=== PATIENT | female | born 1965 | race Caucasian/White ===

== ENCOUNTER 2019-06-01 16:15 | Outpatient (REF) | payer BC, SELFPAY ==
--- NOTE | 2019-06-01 15:45 | PAPFT_PTH ---
PATIENT: Mckayla Centeno LOC: [facility] U#:[id number] AGE/SX: 54/F ROOM: RE06/01/[address]: HU Arevalo : 1965 BED: DIS: 06/01/2019 SPEC #: [id number] RECD: 06/01/19 17:30 STATUS: ANJUM RERanjeet #: [id number] JAIME: 06/01/19 15:[address]: Sirena Briscoe DEPT: [facility] Cytology RECD BY: Carolynn Leon ENTERED: 06/01/19 17:31 SP TYPE: PAPFT OTHR DR: Kerry Espinosa, Tissues: 1 - CX/ENDOCX FOR PAP SMEARS Procedures: PAP THIN PREP/[facility] Screening HPV DNA PROBE Comments: [id number]
== END 2019-06-01 16:35 ==
LOC: LBN 16:15
PROVIDERS: PCP Student in an Organized Health Care Education/Training Program; Visit Provider Nurse Practitioner Family
DX: Z12.4 Encounter for screening for malignant neoplasm of cervix (principal); Z11.51 Encounter for screening for human papillomavirus (HPV)
CPT/HCPCS: 88142; 87624

== ENCOUNTER 2019-10-22 02:54 | Outpatient (CLI) | payer BC, SELFPAY ==
[2019-10-22 14:14] LABS: Hemoglobin A1C 7.1 % (3.8-5.6)
[2019-10-22 14:19] LABS: CREATININE 0.68 mg/dL (0.55-1.02); FREE T4 1.39 ng/dL (0.76-1.46)
[2019-10-22 14:32] LABS: LDL CHOLESTEROL 100 mg/dL (<100)
== END 2019-10-22 03:14 ==
PROVIDERS: PCP Student in an Organized Health Care Education/Training Program; Visit Provider Internal Medicine Endocrinology, Diabetes & Metabolism
DX: E10.319 Type 1 diabetes mellitus with unspecified diabetic retinopathy without macular edema (principal); E03.8 Other specified hypothyroidism
CPT/HCPCS: 36415; 83721; 82565; 83036; 84439

== ENCOUNTER 2019-11-12 01:25 | Outpatient (CLI) | payer BC, SELFPAY ==
--- NOTE | 2019-11-12 14:45 | DI.MAMMO_ITS ---
EXAM: MG MAMMO SCREENING CLINICAL HISTORY: screening Z12.39 TECHNIQUE: Bilateral full field digital CC and MLO mammographic images were obtained with 3D tomosyn thesis and utilizing computer aided detection (CAD). COMPARISON: Available for comparison. FINDINGS: Masses/Architectural Distortion: None seen. Microcalcifications: No suspicious pleomorphic-type are seen. Skin Thickening/Nipple Retraction: None. IMPRESSION: 1. No significant interval change with no specific features of malignancy noted. 2. Unless there is more urgent need, screening mammography is recommended, as per [employer] guidelines. BI-RADS Category 1 - Negative Breast Density - Category B - Scattered areas of fibroglandular density A negative radiographic report should not delay biopsy if a dominant or clinically suspicious mass is present. Up to ten percent of cancers are not identified on mammography. A negative report may reinforce clinical impression. Adenosis and dense breasts may obscure an underlying neoplasm. False positive reports average 6 to 10%. Patient will receive a letter notifying them of these results.
== END 2019-11-12 01:45 ==
PROVIDERS: PCP Student in an Organized Health Care Education/Training Program; Visit Provider Nurse Practitioner Family
DX: Z12.31 Encounter for screening mammogram for malignant neoplasm of breast (principal)
CPT/HCPCS: 77063; 77067

== ENCOUNTER 2019-12-30 10:14 | Outpatient (CLI) | payer BC, SELFPAY ==
[2019-12-30 10:36] LABS: Abs Immature Grans 0.14 10^3/uL (0.0-0.06); Absolute Basophil Count 0.04 10^3/uL (0.0-0.2); Absolute Eosinophil Count 0.03 10^3/uL (0.0-0.7); Absolute Lymphocyte Count 1.27 10^3/uL (1.2-3.4); Absolute Monocyte Count 0.91 10^3/uL (0.1-0.8); Basophils % 0.4; Eosinophils % 0.3; HCT 41.8 % (36.0-46.0); HGB 13.7 g/dL (11.2-15.7); Immature Grans % 1.3; Lymphocytes % 11.5; MCH 28.2 pg (27.0-33.0); MCHC 32.8 % (32.0-36.0); MPV 11.9 fL (8.0-11.0); Monocytes % 8.3; Neutrophils % 78.2; Nucleated RBC 0 %; RBC 4.86 10^6/uL (3.93-5.22); RDW 12.4 % (11.7-14.6); RDW-SD 39.2 fL
[2019-12-30 10:47] LABS: ALT 42 U/L (14-59); AST 29 U/L (15-37); Albumin 3.2 g/dL (3.4-5.0); Alkaline Phosphatase 77 U/L (46-116); Anion Gap 7.8 mmol/L (3-11); BUN 11 mg/dL (7-18); Bilirubin, Total 0.6 mg/dL (0.2-1.0); CO2 30.2 mmol/L (21.0-32.0); CREATININE 0.81 mg/dL (0.55-1.02); Calcium 8.9 mg/dL (8.5-10.1); Chloride 100 mmol/L (98-107); Glucose 172 mg/dL (74-106); Lipase 92 U/L (73-393); Sodium 138 mmol/L (136-145); Total Protein 6.6 g/dL (6.4-8.2)
[2019-12-30 10:50] LABS: Potassium 2.7 mmol/L (3.5-5.1)
[2019-12-30 10:54] LABS: Diff Comment PLT Morph Reviewed; RBC Morphology Normal
== END 2019-12-30 10:34 ==
PROVIDERS: PCP Student in an Organized Health Care Education/Training Program; Visit Provider Internal Medicine
DX: E16.2 Hypoglycemia, unspecified (principal)
CPT/HCPCS: 36415; 80053; 83690; 85025

== ENCOUNTER 2019-12-31 13:30 | Outpatient (CLI) | payer BC, SELFPAY ==
[2019-12-31] MEDS: Omnipaque 350 MG/ML 50 ML BTL IJ (12:17)
[2019-12-31] MEDS: Breeza Beverage 473 ML BTL PO (12:18)
[2019-12-31] MEDS: Normal Saline - Diluent 50 ML VIAL IV (13:14)
[2019-12-31] MEDS: Omnipaque 350 MG/ML 100 ML BTL IJ (13:14)
[2019-12-31] MEDS: Normal Saline Flush 10 ML SYR IVP (13:15)
--- NOTE | 2019-12-31 13:16 | DI.CT_ITS ---
EXAM: CT ABDOMEN PELVIS W CLINICAL HISTORY: hypoglycemia, leukocytosis, d72.829 elevated white blood cell count TECHNIQUE: Imaging Protocol: Axial computed tomography images with coronal and sagittal reformatted images were created and reviewed CONTRAST MATERIAL: Intravenous: Omnipaque 350 Contrast volume:100 mL Oral: Yes COMPARISON: CT ABD PELVIS WITH CONTRAST from 07/19/2015 FINDINGS: ABDOMEN: Lung Bases: Normal where visualized. Liver: There are 2 hypodense lesions seen in the liver that too small for further characterization bu t likely reflect small cysts. No measurable mass. Portal, Superior Mesenteric, and Splenic Veins: Unremarkable. Gallbladder and Biliary Tract: No radiodense calculus or dilation. Pancreas: Normal density, no abnormal calcifications or inflammatory process. Spleen: Normal. Adrenals: No masses seen. Kidneys: Normal size, contour and axis. No radiodense stones or obstructive uropathy. No masses seen. Abdominal Aorta: Abdominal portion non-dilated. Bowel: No obstruction. Mild bowel wall thickening in loops of small bowel in the left abdomen which may reflect an inflammatory or infectious enteritis. Appendix is unremarkable. There is a large amou nt of stool in the colon. Peritoneal Cavity: No ascites, collection or mesenteric inflammatory response. Lymph Nodes: Within normal limits. Bones: Degenerative changes most marked at L4-L5. Old compression deformity of T11. Soft Tissues: Unremarkable. PELVIS: Bladder: Symmetric distention, no gross wall thickening. Reproductive Organs: Unremarkable as visualized. Lymph Nodes: Within normal limits. Bones: Within normal limits. IMPRESSION: Bowel wall thickening in several loops of small bowel in the left abdomen suspicious for an infectiou s or inflammatory enteritis. Please correlate clinically. RADIATION DOSE DELIVERED: 706.08mGy.cm Total DLP DATA REPOSITORY: All CT scans at this facility are submitted to the National Radiology Data Registry (NRDR) Dose Index Registry (DIR) with the [employer] (A[employer]). RADIATION OPTIMIZATION: All CT scans at this facility use at least one of these dose optimization te chniques: automated exposure control; mA and/or kV adjustment per patient size (includes targeted exa ms where dose is matched to clinical indication); or iterative reconstruction.
== END 2019-12-31 13:50 ==
PROVIDERS: PCP Student in an Organized Health Care Education/Training Program; Visit Provider Internal Medicine
DX: K63.89 Other specified diseases of intestine (principal); D72.829 Elevated white blood cell count, unspecified; E16.2 Hypoglycemia, unspecified
CPT/HCPCS: 74177; J3490; Q9967

== ENCOUNTER 2020-01-02 08:53 | Outpatient (CLI) | payer BC, SELFPAY ==
[2020-01-02 09:50] LABS: Potassium 3.2 mmol/L (3.5-5.1)
== END 2020-01-02 09:13 ==
PROVIDERS: PCP Student in an Organized Health Care Education/Training Program; Visit Provider Internal Medicine
DX: E87.6 Hypokalemia (principal)
CPT/HCPCS: 36415; 84132

== ENCOUNTER 2020-01-27 05:27 | Outpatient (CLI) | payer BC, SELFPAY ==
[2020-01-27 17:21] LABS: Potassium 3.6 mmol/L (3.5-5.1)
== END 2020-01-27 05:47 ==
PROVIDERS: Internal Medicine; PCP Student in an Organized Health Care Education/Training Program; Visit Provider Student in an Organized Health Care Education/Training Program
DX: E87.6 Hypokalemia (principal)
CPT/HCPCS: 36415; 84132

== ENCOUNTER 2020-11-15 01:54 | Outpatient (CLI) | payer BC, SELFPAY ==
--- NOTE | 2020-11-15 10:30 | DI.MAMMO_ITS ---
Exam(s) MAMMO SCREENING EXAM: MAMMO SCREENING CLINICAL HISTORY: screening TECHNIQUE: Mammograms were interpreted according to the usual protocol including computer analysis w [employer] CAD system, tomosynthesis and C-view imaging. COMPARISON: 2010 through 2019 FINDINGS: The breasts are composed of scattered fibroglandular densities, Breast Density category B. No suspicious masses or suspicious microcalcifications are seen. No skin thickening or abnormal axillary lymph nodes are seen. There has been no significant change from prior exams. IMPRESSION: BI-RADS Category 1, Negative mammogram Yearly screening mammography is recommended. Breast Density - Category B, scattered fibroglandular densities. A negative radiographic report should not delay biopsy if a dominant or clinically suspicious mass is present. Up to ten percent of cancers are not identified on mammography. A negative report may reinforce clinical impression. Adenosis and dense breasts may obscure an underlying neoplasm. False positive reports average 6 to 10%. Patient will receive a letter notifying them of these results.
== END 2020-11-15 02:14 ==
PROVIDERS: PCP Student in an Organized Health Care Education/Training Program; Visit Provider Nurse Practitioner Family
DX: Z12.31 Encounter for screening mammogram for malignant neoplasm of breast (principal); R92.8 Other abnormal and inconclusive findings on diagnostic imaging of breast
CPT/HCPCS: 77063; 77067

== ENCOUNTER 2021-08-28 02:35 | Outpatient (CLI) | payer BC, SELFPAY ==
[2021-08-28 17:21] LABS: ALT 40 U/L (14-59); AST 32 U/L (15-37); Alkaline Phosphatase 73 U/L (46-116); Anion Gap 10.4 mmol/L (3-11); BUN 16 mg/dL (7-18); CO2 26.6 mmol/L (21.0-32.0); CREATININE 0.7 mg/dL (0.55-1.02); Calculated LDL 80 mg/dL (<100); Chloride 104 mmol/L (98-107); Cholesterol 162 mg/dL (<200); Glucose 243 mg/dL (74-106); HDL Cholesterol 48 mg/dL (40-60); Sodium 141 mmol/L (136-145); Total Protein 7.1 g/dL (6.4-8.2); Triglyceride 171 mg/dL (<150); Vitamin B12 1500 pg/mL (193-986)
[2021-08-28 22:07] LABS: T3,Free 3.6 pg/mL (2.8-5.3)
== END 2021-08-28 02:36 | disposition home or self-care (01) ==
LOC: LBO 02:36
PROVIDERS: PCP Student in an Organized Health Care Education/Training Program; Visit Provider Student in an Organized Health Care Education/Training Program
DX: E10.39 Type 1 diabetes mellitus with other diabetic ophthalmic complication (principal); E23.0 Hypopituitarism; R25.1 Tremor, unspecified; Z13.220 Encounter for screening for lipoid disorders
CPT/HCPCS: 36415; 80053; 80061; 82607; 84481

== ENCOUNTER → 2021-09-08 01:11 | Outpatient (CLI) | payer BC, SELFPAY ==
--- NOTE | 2021-09-08 08:15 | DI.DEXA_ITS ---
Exam(s) XR DEXA BONE DENSITY W/WO ROMY EXAM: XR DEXA BONE DENSITY W/WO ROMY CLINICAL HISTORY: evaluate bone densityPANHYPOITUITARISM,HORMONE REPLACEMENT, ? OSTEOPOROSIS TECHNIQUE: Routine DEXA evaluation of the lumbar spine, hip, or forearm. COMPARISON: DX DEXA BONE DENSITY WITH ROMY from 10/12/2014 FINDINGS: Performed on a Hologic unit. Lateral image: T11 compression fracture noted, not acute. This was evident in 2014 Lumbar Spine total T-score: -0.5. Prior reading in 2014 was -1.0 Hip total T-score:-1.1. Prior reading in 2015 was -0.8 Independent reading at the level of the femoral neck yields at T-score of -1.6. Forearm total T-score: -1.5 IMPRESSION: Bone mineral density measures in the osteopenia range. Fracture risk is moderate. Note: Any spine fracture indicates 5x risk for subsequent spine fracture and 2x risk for subsequent h ip fracture. World Health Organization criteria for BMD interpretation classify patients: Normal...... T- Score at or above -1.0 Osteopenic... T- Score between -1.0 and -2.5 Osteoporosis... T-Score at or below -2.5
== END ==
PROVIDERS: PCP Student in an Organized Health Care Education/Training Program; Visit Provider Student in an Organized Health Care Education/Training Program
DX: E23.0 Hypopituitarism (principal); Z79.890 Hormone replacement therapy; M85.88 Other specified disorders of bone density and structure, other site; Z79.52 Long term (current) use of systemic steroids
CPT/HCPCS: 77080

== ENCOUNTER → 2021-10-12 03:05 | Outpatient (CLI) | payer BC, SELFPAY ==
--- NOTE | 2021-10-12 14:58 | DI.RAD_ITS ---
Exam(s) XR HAND RT COMPLETE XR HAND LT COMPLETE EXAM: XR HAND BILATERAL CLINICAL HISTORY: evaluate for possible early contracture as in RT,BILAT HAND PAIN, M79.642. TECHNIQUE: 2D digital imaging was performed. COMPARISON: CR XR HAND RT COMPLETE from 10/12/2021 FINDINGS: LEFT HAND THREE VIEWS: No evidence of fracture or dislocation. No osseous lesions nor erosions. No radiopaque foreign body. Bone density normal. RIGHT HAND THREE VIEWS: No evidence of fracture nor dislocation. No osseous lesions nor erosions. B one density is normal. No radiopaque foreign body. IMPRESSION: No significant findings. DATA REPOSITORY: RADIATION DOSE DELIVERED:
== END ==
PROVIDERS: PCP Student in an Organized Health Care Education/Training Program; Visit Provider Student in an Organized Health Care Education/Training Program
DX: M79.641 Pain in right hand; M79.642 Pain in left hand
CPT/HCPCS: 73130

== ENCOUNTER → 2021-12-13 01:24 | Outpatient (CLI) | payer BC, SELFPAY ==
--- NOTE | 2021-12-13 12:45 | DI.MAMMO_ITS ---
Exam(s) MAMMO SCREENING EXAM: MAMMO SCREENING CLINICAL HISTORY: screening TECHNIQUE: Mammograms were interpreted according to the usual protocol including computer analysis w [employer] CAD system, tomosynthesis and C-view imaging. COMPARISON: FINDINGS: The breasts are of moderate density with fairly symmetrical distribution of fibroglandular tissue. N o dominant mass or clumped microcalcification is identified in either breast. The current examinatio n is compared with previous examinations including October 2020 and there has been no gross interval anum nge in appearance in comparison with the prior studies. IMPRESSION: No specific evidence of malignancy at this time. Routine screening examinations are suggested at yea rly intervals due to the family history of breast carcinoma. BI-RADS Category 1 - Negative Breast Density - Category B - Scattered areas of fibroglandular density
== END ==
PROVIDERS: PCP Student in an Organized Health Care Education/Training Program; Visit Provider Nurse Practitioner Family
DX: Z12.31 Encounter for screening mammogram for malignant neoplasm of breast (principal); Z80.3 Family history of malignant neoplasm of breast
CPT/HCPCS: 77063; 77067

== ENCOUNTER 2021-12-13 02:37 | Outpatient (CLI) | payer BC, SELFPAY ==
[2021-12-13 13:22] LABS: ESR 6 mm/hr (0-30)
[2021-12-13 13:59] LABS: C-Reactive Protein 0.54 mg/dL (0.0-0.3)
[2021-12-13 21:34] LABS: Rheumatoid Factor <8.6 IU/mL (<12.0)
[2021-12-13 22:40] LABS: Vitamin B12 1309 pg/mL (211-911)
[2021-12-14 13:00] LABS: ANA Interpretation Negative (Negative)
[2021-12-14 13:09] LABS: dsDNA Ab, IgG <12.3 IU/mL (<30.0)
[2021-12-14 15:09] LABS: Sm (Smith) Ab, IgG 2.8 Units (<20.0)
== END 2021-12-13 02:38 | disposition home or self-care (01) ==
LOC: LBO 02:37
PROVIDERS: Student in an Organized Health Care Education/Training Program; PCP Student in an Organized Health Care Education/Training Program; Visit Provider Student in an Organized Health Care Education/Training Program
DX: K90.9 Intestinal malabsorption, unspecified (principal); Z86.2 Personal history of diseases of the blood and blood-forming organs and certain disorders involving the immune mechanism; Z86.39 Personal history of other endocrine, nutritional and metabolic disease; M25.50 Pain in unspecified joint
CPT/HCPCS: 36415; 85652; 82607; 86038; 86140; 86225; 86235; 86431

== ENCOUNTER 2022-05-01 15:49 | Outpatient (CLI) | payer BC, SELFPAY ==
--- NOTE | 2022-05-01 15:00 | DI.RAD_ITS ---
Exam(s) XR LUMBAR SPINE AP, LAT EXAM: XR LUMBAR SPINE AP, LAT CLINICAL HISTORY: evaluate vert; joint space, r/o bony path, lower back pain, M54.50. TECHNIQUE: 2D digital imaging was performed. COMPARISON: CR XR DEXA BONE DENSITY W/WO ROMY from 09/08/2021 CR XR SCOLIOSIS T-L SPINE from 05/01/2022 FINDINGS: 3 views No evidence of acute lumbar vertebral fractures. Superior endplate compression fracture of T11 is ag ain noted, as evident on the microbiological analyst view of DEXA scan performed 09/08/2021. This does not appear to h ave progressed. There is advanced disc space narrowing at L4-5 level again noted. The other disc spaces in the lumba r spine including L5-S1 level exhibit normal height. Mild anterior osseous lipping at L1-2 level is noted which may indicate some degenerative disc disease despite preserved disc height at this level. No obvious facet arthropathy with the exception of L5-S1 where there appears to be mild degenerative change in the facet joints. No ominous osseous lesions. Mild scoliosis convex left noted in lumbar spine. IMPRESSION: As above. DATA REPOSITORY: RADIATION DOSE DELIVERED:
--- NOTE | 2022-05-01 15:00 | DI.RAD_ITS ---
Exam(s) XR SCOLIOSIS T-L SPINE EXAM: XR SCOLIOSIS T-L SPINE CLINICAL HISTORY: eval for scoliosis, lower back pain, fam hx scoliosis, M54.50, M25.511. TECHNIQUE: 2D digital imaging was performed. COMPARISON: CT CT ABDOMEN PELVIS W from 12/31/2019 FINDINGS: 3 views Standing scoliosis series. Abdominal CT scan of 12/31/2019 was reviewed. There is no appreciable scoliosis in the thoracic spine. However, there is a compression fracture of superior endplate of T11 again noted, similar to 12/31/2019. In the lumbar spine there has been progressive further height loss at L4-5 disc space with the other disc spaces remaining normal height. There is a mild scoliosis convex left in the lumbar spine which is slightly progressed from the coronal reconstructed images of the CT scan of December 2019. No o sseous lesions. Sacroiliac joints appear unremarkable. IMPRESSION: Mild scoliosis convex left which is confined to the lumbar spine and has slightly progressed when com pared to December 2019 (coronal CT scan reconstructions). Stable height loss of superior endplate of T11, unchanged from December 2019. Further height loss of L4-5 disc space. DATA REPOSITORY: RADIATION DOSE DELIVERED:
== END 2022-05-01 16:09 ==
LOC: DI 15:50
PROVIDERS: PCP Student in an Organized Health Care Education/Training Program; Visit Provider Student in an Organized Health Care Education/Training Program
DX: M25.511 Pain in right shoulder (principal); M54.50 Low back pain, unspecified; Z82.69 Family history of other diseases of the musculoskeletal system and connective tissue; M41.86 Other forms of scoliosis, lumbar region; S22.080D Wedge compression fracture of T11-T12 vertebra, subsequent encounter for fracture with routine healing
CPT/HCPCS: 72081; 72100

== ENCOUNTER → 2022-12-14 00:39 | Outpatient (CLI) | payer BC, SELFPAY ==
--- NOTE | 2022-12-14 08:00 | DI.MAMMO_ITS ---
Exam(s) MAMMO SCREENING EXAM: MAMMO SCREENING CLINICAL HISTORY: screening,Z12.39. TECHNIQUE: Bilateral full field digital CC and MLO mammographic images were obtained with 3D tomosyn thesis and utilizing computer aided detection (CAD). COMPARISON: Prior mammograms were reviewed. FINDINGS: There has been no significant change in the appearance and distribution of the fibroglandular tissue. No CAD designations. There are no new spiculated masses nor malignant appearing microcalcification groups. Benign-appearing nodules in both breasts are unchanged and probably benign intramammary lymph nodes. There is no significant architectural distortion nor skin thickening-retraction. IMPRESSION: No radiographic evidence of malignancy. BI-RADS Category 1 - Negative Breast Density - Category B - Scattered areas of fibroglandular density Breast density Category C or D implies that the patient has dense breast tissue. Dense breast tissue can make it harder to find cancer on a mammogram. Dense breast tissue is also associated with an incr eased risk of breast cancer. This information about the result of the mammogram report was provided to the patient to raise their awareness. Use this report when you speak with the patient about their risks for breast cancer, which includes their family history. At that time, you may recommend additional screening tests (Ultrasoun d or MRI) as these tests may add significant information. A negative radiographic report should not delay biopsy if a dominant or clinically suspicious mass is present. Up to ten percent of cancers are not identified on mammography. A negative report may reinforce clinical impression. Adenosis and dense breasts may obscure an underlying neoplasm. False positive reports average 6 to 10%. Patient will receive a letter notifying them of these results.
== END ==
PROVIDERS: PCP Student in an Organized Health Care Education/Training Program; Visit Provider Obstetrics & Gynecology
DX: Z12.31 Encounter for screening mammogram for malignant neoplasm of breast (principal)
CPT/HCPCS: 77063; 77067

== ENCOUNTER 2024-03-03 02:24 | Outpatient (CLI) | payer BC, SELFPAY ==
[2024-03-03 18:13] LABS: Vitamin D 25 Total 48.9 ng/mL (30-100)
[2024-03-03 18:28] LABS: Calculated LDL 64 mg/dL (<100); Cholesterol 176 mg/dL (<200); HDL Cholesterol 58 mg/dL (40-60); Triglyceride 272 mg/dL (<150); Vitamin B12 1754 pg/mL (193-986)
[2024-03-03 19:00] LABS: Folate > 20.0 ng/mL (8.6-20.0)
[2024-03-07 17:12] LABS: Vitamin E, Serum 28.4 mg/L (5.5 - 17.0)
== END 2024-03-03 02:25 | disposition home or self-care (01) ==
LOC: LBO 02:25
PROVIDERS: PCP Student in an Organized Health Care Education/Training Program; Visit Provider Student in an Organized Health Care Education/Training Program
DX: G62.9 Polyneuropathy, unspecified (principal); G72.9 Myopathy, unspecified; E88.9 Metabolic disorder, unspecified; G63 Polyneuropathy in diseases classified elsewhere; Z13.220 Encounter for screening for lipoid disorders
CPT/HCPCS: 36415; 80061; 82306; 82607; 82746; 84446

== ENCOUNTER 2024-06-26 00:27 | Outpatient (CLI) | payer BC, SELFPAY ==
--- NOTE | 2024-06-26 09:13 | DI.MAMMO_ITS ---
Exam(s) MAMMO SCREENING EXAM: MAMMO SCREENING CLINICAL HISTORY: screening,Z12.39 TECHNIQUE: Mammograms were interpreted according to the usual protocol including computer analysis w [employer] CAD system, tomosynthesis and C-view imaging. COMPARISON: No exams were available for comparison FINDINGS: The breasts are composed of scattered fibroglandular densities, Breast Density category B. No suspicious masses or suspicious microcalcifications are seen. No skin thickening or abnormal axillary lymph nodes are seen. There has been no significant change from prior exams. IMPRESSION: BI-RADS Category 1, Negative mammogram Yearly screening mammography is recommended. Breast Density - Category B, scattered fibroglandular densities. A negative radiographic report should not delay biopsy if a dominant or clinically suspicious mass is present. Up to ten percent of cancers are not identified on mammography. A negative report may reinforce clinical impression. Adenosis and dense breasts may obscure an underlying neoplasm. False positive reports average 6 to 10%. Patient will receive a letter notifying them of these results.
== END 2024-06-26 00:47 ==
LOC: DI 00:27
PROVIDERS: PCP Nurse Practitioner; Visit Provider Nurse Practitioner
DX: Z12.31 Encounter for screening mammogram for malignant neoplasm of breast (principal); R92.323 Mammographic fibroglandular density, bilateral breasts
CPT/HCPCS: 77063; 77067

== ENCOUNTER 2024-09-08 10:25 | Outpatient (REF) | payer BC, SELFPAY ==
--- NOTE | 2024-09-08 10:10 | PAPFT_PTH ---
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
== END 2024-09-08 10:26 | disposition home or self-care (01) ==
LOC: LBN 10:25
PROVIDERS: PCP Nurse Practitioner; Visit Provider Obstetrics & Gynecology
DX: Z12.4 Encounter for screening for malignant neoplasm of cervix (principal)
CPT/HCPCS: 88142; 87624

== ENCOUNTER 2024-10-06 16:37 | Outpatient (CLI) | payer BC, SELFPAY ==
[2024-10-06 17:15] LABS: HCT 40.9 % (36.0-46.0); HGB 13.4 g/dL (11.2-15.7); MCH 28.3 pg (27.0-33.0); MCHC 32.8 % (32.0-36.0); MCV 87 fL (80-95); MPV 10.7 fL (8.0-11.0); Platelet Count 272 10^3/uL (130-400); RBC 4.73 10^6/uL (3.93-5.22); RDW 13.1 % (11.7-14.6); RDW-SD 41.4 fL; WBC 19.19 10^3/uL (4.4-10.8)
[2024-10-06 17:19] LABS: ESR 11 mm/hr (0-30)
[2024-10-06 17:51] LABS: C-Reactive Protein < 0.50 mg/dL (<or=0.5); CREATININE 0.7 mg/dL (0.55-1.02); Estimated GFR 98.95 (mL/min/1.73m2)
[2024-10-06 18:10] LABS: Lab Add On Test DONE
[2024-10-06 18:18] LABS: Abs Immature Grans 0.19 10^3/uL (0.0-0.06); Absolute Eosinophil Count 0.06 10^3/uL (0.0-0.7); Absolute Lymphocyte Count 1.09 10^3/uL (1.2-3.4); Absolute Monocyte Count 0.79 10^3/uL (0.1-0.8); Absolute Neutrophil Count 16.78 10^3/uL (1.2-6.7); Basophils % 0.5 %; Eosinophils % 0.3 %; Lymphocytes % 5.7 %; Monocytes % 4.2 %; Neutrophils % 88.3 %
== END 2024-10-06 16:38 | disposition home or self-care (01) ==
LOC: LBO 16:38
PROVIDERS: PCP Nurse Practitioner; Visit Provider Nurse Practitioner Family
DX: R51.9 Headache, unspecified (principal); R89.9 Unspecified abnormal finding in specimens from other organs, systems and tissues
CPT/HCPCS: 36415; 85027; 85652; 82565; 85007; 86140

== ENCOUNTER 2024-10-28 02:47 | Outpatient (CLI) | payer BC, SELFPAY ==
--- NOTE | 2024-10-28 06:30 | DI.MRI_ITS ---
Exam(s) MR BRAIN PITUITARY WO/W EXAM: MR BRAIN PITUITARY WO/W CLINICAL HISTORY: hx pituitary resection 1987, new headache,r51.9 TECHNIQUE: Multiplanar multisequence MRI of the brain and pituitary gland was performed. CONTRAST MATERIAL: IV Contrast: 13 mL of Dotarem contrast administered. COMPARISON: CT CT HEAD SINUS WO from 10/09/2024 Findings: VENTRICLES AND EXTRA AXIAL SPACES: Normal in size and morphology for the patient's age. HEMORRHAGE: None. CEREBRAL PARENCHYMA: No focus of restricted diffusion to suggest acute infarct. No space-occupying lesion identified. Atrophy abnormal high signal lesions in the white matter MIDLINE SHIFT: None. BRAINSTEM/CEREBELLUM: Normal. CALVARIUM: Normal. ENHANCEMENT: No suspicious enhancement identified. VISUALIZED PARANASAL SINUSES/MASTOIDS: Clear. OTHER FINDINGS: None. PITUITARY: Pituitary stalk is midline. No pituitary tissue is visible. The patient has a history of previous pituitary resection. There is no evidence of recurrent mass. No bony destruction of the clivus. The optic chiasm is unremarkable. The cavernous portions of both carotid arteries are unremarkable. Impression: Unremarkable MRI of the brain. No evidence recurrence of pituitary mass. DATA REPOSITORY:
[2024-10-28] MEDS: Gadoterate meglumine 20 ML SYRINGE 13 ML IVP (09:01)
[2024-10-28] MEDS: Normal Saline Flush 10 ML SYR IVP (09:02)
== END 2024-10-28 03:07 ==
LOC: DI 02:47
PROVIDERS: PCP Nurse Practitioner Family; Visit Provider Nurse Practitioner Family
DX: R51.9 Headache, unspecified (principal)
CPT/HCPCS: 70553

== ENCOUNTER 2025-03-15 02:02 | Outpatient (CLI) | payer BC, SELFPAY ==
[2025-03-15 08:42] LABS: HCT 43.5 % (36.0-46.0); HGB 14.1 g/dL (11.2-15.7); MCH 27.6 pg (27.0-33.0); MCHC 32.4 % (32.0-36.0); MCV 85 fL (80-95); MPV 10.6 fL (8.0-11.0); Platelet Count 301 10^3/uL (130-400); RBC 5.11 10^6/uL (3.93-5.22); RDW 12.8 % (11.7-14.6); RDW-SD 40.1 fL; WBC 8.73 10^3/uL (4.4-10.8)
[2025-03-15 10:59] LABS: Vitamin B12 1579 pg/mL (211-911)
[2025-03-15 11:12] LABS: TSH < 0.01 uIU/mL (0.55-4.78)
[2025-03-15 11:13] LABS: ALT 27 U/L (10-49); AST 30 U/L (<34); Albumin 4.3 g/dL (3.4-5.0); Alkaline Phosphatase 59 U/L (46-116); Anion Gap 9.6 mmol/L (3-11); BUN 17 mg/dL (9-23); Bilirubin, Total 1.20 mg/dL (0.2-1.2); CO2 29.4 mmol/L (20.0-31.0); Calcium 9.3 mg/dL (8.3-10.6); Chloride 104 mmol/L (98-107); Cholesterol 157 mg/dL (<200); Glucose 88 mg/dL (74-106); HDL Cholesterol 63 mg/dL (>40); Potassium 3.0 mmol/L (3.5-5.1); Sodium 143 mmol/L (136-145); Total Protein 7.0 g/dL (5.7-8.2)
[2025-03-15 11:26] LABS: Hemoglobin A1C 6.7 % (<5.7)
== END 2025-03-15 02:03 | disposition home or self-care (01) ==
LOC: LBO 02:02
PROVIDERS: Absent Provider Nurse Practitioner Family; PCP Nurse Practitioner Family; Referring Provider Nurse Practitioner Family; Visit Provider Nurse Practitioner Family
DX: E10.39 Type 1 diabetes mellitus with other diabetic ophthalmic complication (principal); E03.8 Other specified hypothyroidism; K14.6 Glossodynia; E78.5 Hyperlipidemia, unspecified
CPT/HCPCS: 36415; 80053; 80061; 85027; 82607; 83036; 84439; 84443